=== PATIENT | male | born 2000 | race Two or more races ===

== ENCOUNTER 2021-05-28 20:07 | Emergency (ER) | payer SELFPAY ==
[~2021-05-28] VITALS: Ht 182.9 cm; Wt 128.6 kg
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
[2021-05-28] MEDS ORDERED: IV NORMAL SALINE 1000ML BAG 1,000 ML IV ONE (20:45)
[2021-05-28] MEDS ORDERED: fentaNYL PF VIAL 100 MCG/2 ML VIAL IVP ONE (20:45)
[2021-05-28] MEDS ORDERED: ONDANSETRON PF 4 MG/2 ML VIAL. IVP ONE (20:45)
[2021-05-28] MEDS ORDERED: TETANUS AND DIPHTHERIA TOX/PF 0.5 ML DISP.SYRIN. VAX IM ONE (20:45)
[2021-05-28 21:11] LABS: BASO % 1 % (0-3); EOS # 0.3 x10^3/uL (0.0-0.7); EOS % 5 % (0-3); HEMATOCRIT 42.8 % (39.0-53.0); HEMOGLOBIN 14.3 g/dL (13.0-17.5); LYMPH # 2.3 x10^3/uL (1.0-4.8); LYMPH % 46 % (24-48); MEAN CORPUSCULAR HEMOGLOBIN 28 pg (25-35); MEAN CORPUSCULAR HGB CONC 34 g/dL (31-37); MEAN CORPUSCULAR VOLUME 85 fL (79-100); MONO # 0.4 x10^3/uL (0.0-1.1); MONO % 8 % (0-9); NEUT % 40 % (31-73); PLATELET COUNT 245 x10^3/uL (140-400); RED BLOOD COUNT 5.04 x10^6/uL (4.30-5.70); RED CELL DISTRIBUTION WIDTH 13.2 % (11.5-14.5)
[2021-05-28] MEDS ORDERED: CONTRAST GIVEN. MC PRN (21:15)
[2021-05-28 21:18] LABS: CREATININE 1.1 mg/dL (0.7-1.3); GFR 85.3; POTASSIUM 4.2 mmol/L (3.5-5.1)
[2021-05-28 21:24] LABS: ALBUMIN/GLOBULIN RATIO 0.9 (1.0-1.7); TOTAL BILIRUBIN 0.2 mg/dL (0.2-1.0); TOTAL PROTEIN 8.4 g/dL (6.4-8.2)
[2021-05-28] MEDS ORDERED: IOHEXOL 300 MG/ML 100ML VIAL. IV ONE (21:30)
--- NOTE | 2021-05-28 21:42 | RAD ---
Exam: Right knee 3 views INDICATION: Right knee pain TECHNIQUE: Frontal, lateral and oblique views of the right knee Comparisons: None FINDINGS: Bone mineralization is normal. No acute or healed fractures. Soft tissues are unremarkable. Joint spa shazia are well-maintained. IMPRESSION: No acute osseous abnormality. Electronically signed by: Jasvir Torres MD (05/28/2021 9:40 PM) [facility]
--- NOTE | 2021-05-28 21:46 | RAD ---
Exam: Bilateral tibia and fibula 2 views INDICATION: Right knee pain TECHNIQUE: Frontal and lateral views of the right and left tibia and fibula Comparisons: None FINDINGS: Right: Bone mineralization is normal. No acute or healed fractures. Soft tissues are unremarkable. Joint spa shazia are well-maintained. Left: Bone mineralization is normal. No acute or healed fractures. Soft tissues are unremarkable. Joint spa shazia are well-maintained. IMPRESSION: 1. No acute osseous abnormality of the right tibia and fibula. 2. No acute osseous abnormality of the left tibia fibula. Electronically signed by: Jasvir Torres MD (05/28/2021 9:43 PM) [facility]
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
[2021-05-28] MEDS ORDERED: CYCL10TA19 PO (23:20)
[2021-05-28 23:29] VITALS: BP 165/76
[2021-05-28] MEDS ORDERED: CYCLOBENZAPRINE 10 MG TABLET. PO ONE (23:45)
== END 2021-05-28 23:39 | disposition home or self-care (01) ==
LOC: ER 20:07
DX: S80.11XA Contusion of right lower leg, initial encounter (principal); S80.211A Abrasion, right knee, initial encounter; V49.49XA Driver injured in collision with other motor vehicles in traffic accident, initial encounter; Y92.488 Other paved roadways as the place of occurrence of the external cause; Y93.89 Activity, other specified; Y99.8 Other external cause status
CPT/HCPCS: 36415; 70450; 71260; 72125; 73562; 73590; 74177; 80053; 82550; 83690; 85025; 90471; 90714; 96361; 96374; 96375; 99285; J2405; J3010; J7030; Q9967